=== PATIENT | male | born 1940 | race Caucasian/White ===

== ENCOUNTER 2016-06-24 14:19 | Inpatient (IN) | payer MEDICARE ==
[~2016-06-24] VITALS: Ht 182.9 cm; Wt 80.2 kg
[2016-06-24] MEDS ORDERED: SODIUM CHLORIDE FLUSH 10ML SYR IVF ONE (15:00)
[2016-06-24 15:52] LABS: BLOOD UREA NITROGEN 15 mg/dL (7-18)
[2016-06-24 16:03] LABS: ANISOCYTOSIS 1+; HYPOCHROMIA 1+; POLYCHROMASIA 1+
[2016-06-24 16:04] LABS: SPHEROCYTES 1+
[2016-06-24] MEDS ORDERED: INSU300I INJ (16:08)
[2016-06-24] MEDS ORDERED: FLUT50DI INH (16:08)
[2016-06-24] MEDS ORDERED: OMEP-110 PO (16:08)
[2016-06-24] MEDS ORDERED: METF10002 PO (16:08)
[2016-06-24] MEDS ORDERED: LEVO100T5 PO (16:08)
[2016-06-24] MEDS ORDERED: SIMV40TA3 PO (16:08)
[2016-06-24] MEDS ORDERED: PROC10TA PO (16:14)
[2016-06-24] MEDS ORDERED: IBUP-1222 PO (16:14)
[2016-06-24] MEDS ORDERED: UBID100C24 PO (16:14)
[2016-06-24] MEDS ORDERED: ONDA8TAB9 PO (16:14)
[2016-06-24] MEDS ORDERED: IRON15TA3 PO (16:14)
[2016-06-24] MEDS ORDERED: ASPI-496 PO (16:14)
[2016-06-24] MEDS ORDERED: DIPH25CA61 PO (16:14)
[2016-06-24] MEDS ORDERED: MILK500C PO (16:14)
[2016-06-24] MEDS ORDERED: SPIR25TA3 PO (16:14)
[2016-06-24] MEDS ORDERED: MV-M1TAB3 PO (16:14)
[2016-06-24] MEDS ORDERED: 5-FU IV (16:14)
[2016-06-24] MEDS ORDERED: OMEG-133 PO (16:14)
[2016-06-24] MEDS ORDERED: CINN500C2 PO (16:14)
[2016-06-24] MEDS ORDERED: [UNRECOGNIZED DRUG - CODE] IV (16:14)
[2016-06-24] MEDS ORDERED: PSEU120T60 PO (16:14)
[2016-06-24] MEDS ORDERED: SODIUM CHLORIDE 0.9% 1,000 ML IV ONE (18:17)
[2016-06-24] MEDS ORDERED: ONDANSETRON 2MG/ML, 2ML IVPush PRN (18:30)
[2016-06-24] MEDS ORDERED: HYDROmorphone 1 MG/ML, 1ML IVPush PRN (18:30)
[2016-06-24] MEDS ORDERED: SODIUM CHLORIDE FLUSH 10ML SYR IVF PRN (18:30)
[2016-06-24] MEDS ORDERED: DEXTROSE 4 GM TAB.CHEW PO PRN (19:00)
[2016-06-24] MEDS ORDERED: BISACODYL 10 MG SUPP PR PRN (19:00)
[2016-06-24] MEDS ORDERED: MORPHINE SULFATE 4 MG/ML, 1ML IVPush PRN (19:00)
[2016-06-24] MEDS ORDERED: DEXTROSE 50%, 50ML SYRINGE IVPush PRN (19:00)
[2016-06-24] MEDS ORDERED: ONDANSETRON 2MG/ML, 2ML IVP PRN (19:00)
[2016-06-24] MEDS ORDERED: PROMETHAZINE 25 MG/ML, 1ML IM PRN (19:00)
[2016-06-24] MEDS ORDERED: ACETAMINOPHEN 325 MG TABLET PO PRN (19:00)
[2016-06-24] MEDS ORDERED: POLYETHYLENE GLYCOL 17 GM PACKET PO PRN (19:00)
[2016-06-24] MEDS ORDERED: GLUCAGON 1 MG IM PRN (19:00)
[2016-06-24] MEDS ORDERED: LIDOCAINE GEL 2%, 5ML ONE (19:21)
[2016-06-24 20:25] VITALS: BP 149/87
[2016-06-24] MEDS: INSULIN ASPART 100 UNITS/ML, PEN SQ-INSULIN SCH (21:00)
[2016-06-24] MEDS: FLUTICASONE PROPIONATE 50 MCG INH SCH (21:30)
[2016-06-24] MEDS: SPIRONOLACTONE 25 MG TABLET PO SCH (22:13)
[2016-06-24] MEDS: SIMVASTATIN 40 MG TABLET PO SCH (22:13)
[2016-06-24] MEDS: SODIUM CHLORIDE FLUSH 10ML SYR IVF SCH (22:13)
[2016-06-24] MEDS: ENOXAPARIN 40 MG/0.4 ML SQ SCH (22:14)
[2016-06-24] MEDS: DIPHENHYDRAMINE 25 MG CAPSULE PO SCH (22:15)
[2016-06-24] MEDS: HYDROcodone/APAP 5/325 TABLET PO PRN (22:34)
[2016-06-25 04:05] VITALS: BP 123/73
[2016-06-25 04:55] LABS: ASPARTATE AMINO TRANSFERASE 23 U/L (15-37); BLOOD UREA NITROGEN 14 mg/dL (7-18)
[2016-06-25] MEDS: LEVOTHYROXINE 100 MCG TABLET PO SCH (06:41)
[2016-06-25] MEDS: INSULIN ASPART 100 UNITS/ML, PEN SQ-INSULIN SCH ×4 (07:00→20:56)
[2016-06-25 07:19] VITALS: BP 125/77
[2016-06-25] MEDS: ASPIRIN 81 MG TABLET EC PO SCH (07:34)
[2016-06-25] MEDS: SPIRONOLACTONE 25 MG TABLET PO SCH ×2 (07:34→19:46)
[2016-06-25] MEDS: SODIUM CHLORIDE FLUSH 10ML SYR IVF SCH ×2 (07:34→19:46)
[2016-06-25 13:47] VITALS: BP 122/73
[2016-06-25] MEDS: HYDROcodone/APAP 5/325 TABLET PO PRN ×2 (14:21→19:47)
[2016-06-25] MEDS: FLUTICASONE PROPIONATE 50 MCG INH SCH (19:32)
[2016-06-25] MEDS: ENOXAPARIN 40 MG/0.4 ML SQ SCH (19:46)
[2016-06-25] MEDS: SIMVASTATIN 40 MG TABLET PO SCH (19:46)
[2016-06-25] MEDS: DIPHENHYDRAMINE 25 MG CAPSULE PO SCH (19:47)
[2016-06-25 22:00] VITALS: BP 122/78
[2016-06-26 03:47] VITALS: BP 117/73
[2016-06-26 07:02] VITALS: BP 124/74
[2016-06-26] MEDS: LEVOTHYROXINE 100 MCG TABLET PO SCH (07:59)
[2016-06-26] MEDS: ASPIRIN 81 MG TABLET EC PO SCH (07:59)
[2016-06-26] MEDS: SPIRONOLACTONE 25 MG TABLET PO SCH ×2 (07:59→19:16)
[2016-06-26] MEDS: INSULIN ASPART 100 UNITS/ML, PEN SQ-INSULIN SCH ×4 (08:04→19:30)
[2016-06-26] MEDS: SODIUM CHLORIDE FLUSH 10ML SYR IVF SCH ×2 (08:09→19:16)
[2016-06-26 12:57] VITALS: BP 113/66
[2016-06-26] MEDS: FLUTICASONE PROPIONATE 50 MCG INH SCH (19:15)
[2016-06-26] MEDS: ENOXAPARIN 40 MG/0.4 ML SQ SCH (19:16)
[2016-06-26] MEDS: SIMVASTATIN 40 MG TABLET PO SCH (19:16)
[2016-06-26] MEDS: HYDROcodone/APAP 5/325 TABLET PO PRN (19:16)
[2016-06-26] MEDS: DIPHENHYDRAMINE 25 MG CAPSULE PO SCH (19:17)
[2016-06-26 19:22] VITALS: BP 127/81
[2016-06-27 04:18] VITALS: BP 117/76
[2016-06-27 07:50] VITALS: BP 112/71
[2016-06-27] MEDS: INSULIN ASPART 100 UNITS/ML, PEN SQ-INSULIN SCH ×4 (08:10→20:08)
[2016-06-27] MEDS: ASPIRIN 81 MG TABLET EC PO SCH (08:11)
[2016-06-27] MEDS: LEVOTHYROXINE 100 MCG TABLET PO SCH (08:11)
[2016-06-27] MEDS: SODIUM CHLORIDE FLUSH 10ML SYR IVF SCH ×2 (08:11→20:07)
[2016-06-27] MEDS: SPIRONOLACTONE 25 MG TABLET PO SCH ×2 (08:11→20:07)
[2016-06-27] MEDS ORDERED: Hydrocodone Bit/Acetaminophen PO (13:45)
[2016-06-27] MEDS ORDERED: POLY17PO5 PO (13:45)
[2016-06-27] MEDS ORDERED: Enoxaparin Sodium SQ (13:45)
[2016-06-27 13:52] VITALS: BP 108/65
[2016-06-27 19:12] VITALS: BP 122/72
[2016-06-27] MEDS: SIMVASTATIN 40 MG TABLET PO SCH (20:07)
[2016-06-27] MEDS: HYDROcodone/APAP 5/325 TABLET PO PRN ×2 (20:07→21:02)
[2016-06-27] MEDS: ENOXAPARIN 40 MG/0.4 ML SQ SCH (20:07)
[2016-06-27] MEDS: DIPHENHYDRAMINE 25 MG CAPSULE PO SCH (20:07)
[2016-06-27] MEDS: FLUTICASONE PROPIONATE 50 MCG INH SCH (20:08)
[2016-06-28 01:58] VITALS: BP 116/68
[2016-06-28 07:32] VITALS: BP 106/66
[2016-06-28] MEDS: SODIUM CHLORIDE FLUSH 10ML SYR IVF SCH (08:15)
[2016-06-28] MEDS: INSULIN ASPART 100 UNITS/ML, PEN SQ-INSULIN SCH ×2 (08:15→11:53)
[2016-06-28] MEDS: ASPIRIN 81 MG TABLET EC PO SCH (08:16)
[2016-06-28] MEDS: SPIRONOLACTONE 25 MG TABLET PO SCH (08:16)
[2016-06-28] MEDS: LEVOTHYROXINE 100 MCG TABLET PO SCH (08:17)
[2016-06-28 13:02] VITALS: BP 122/73
[2016-06-28] MEDS: HYDROcodone/APAP 5/325 TABLET PO PRN (15:11)
== END 2016-06-28 15:55 | DRG 535 ==
LOC: ED 16:39 → EDIP 18:17 → SUATTDRO 18:35 → 3NW 20:21
PROVIDERS: ADMIT Internal Medicine; ATTEND Internal Medicine
DX: S32.592A Other specified fracture of left pubis, initial encounter for closed fracture (principal); E43 Unspecified severe protein-calorie malnutrition; S32.415A Nondisplaced fracture of anterior wall of left acetabulum, initial encounter for closed fracture; J98.11 Atelectasis; R18.8 Other ascites; D63.8 Anemia in other chronic diseases classified elsewhere; E03.9 Hypothyroidism, unspecified; K59.00 Constipation, unspecified; R26.2 Difficulty in walking, not elsewhere classified; W18.39XA Other fall on same level, initial encounter; E11.9 Type 2 diabetes mellitus without complications; E78.5 Hyperlipidemia, unspecified; Z80.42 Family history of malignant neoplasm of prostate; Z80.8 Family history of malignant neoplasm of other organs or systems; Z83.3 Family history of diabetes mellitus; Z85.46 Personal history of malignant neoplasm of prostate; Z85.828 Personal history of other malignant neoplasm of skin; Z90.81 Acquired absence of spleen; Z68.24 Body mass index [BMI] 24.0-24.9, adult; Y93.89 Activity, other specified; Y92.89 Other specified places as the place of occurrence of the external cause; Y99.8 Other external cause status
CPT/HCPCS: 36415; 71010; 80048; 80053; 81003; 82040; 82962; 85025; 85610; 85730; J1650; J1815; J7030; Q0163

== ENCOUNTER → 2016-08-11 | Outpatient (CLI) | payer MEDICARE ==
[~2016-08-11] MED LIST: 5-FU IV; ASPI-496 PO; CINN500C2 PO; DIPH25CA61 PO; Enoxaparin Sodium SQ; FLUT50DI INH; Hydrocodone Bit/Acetaminophen PO; IBUP-1222 PO; INSU300I INJ; IRON15TA3 PO; LEVO100T5 PO; LIDOCAINE 2%, 20ML ONE; METF10002 PO; MILK500C PO; MV-M1TAB3 PO; OMEG-133 PO; OMEP-110 PO; ONDA8TAB9 PO; POLY17PO5 PO; PROC10TA PO; PSEU120T60 PO; SIMV40TA3 PO; SODIUM BICARBONATE 4.2%, 5ML ONE; SPIR25TA3 PO; UBID100C24 PO; [UNRECOGNIZED DRUG - CODE] IV
== END | disposition home or self-care (01) ==
LOC: RAD 07:26
PROVIDERS: ATTEND Specialist
DX: C78.6 Secondary malignant neoplasm of retroperitoneum and peritoneum (principal); R14.0 Abdominal distension (gaseous)
CPT/HCPCS: 49083; J3490

== ENCOUNTER 2016-08-17 19:46 | Emergency (ER) | payer MEDICARE ==
[~2016-08-17] VITALS: Ht 182.9 cm; Wt 78.5 kg
[~2016-08-17 19:46] MED LIST changes: -LIDOCAINE 2%, 20ML ONE; -SODIUM BICARBONATE 4.2%, 5ML ONE
[2016-08-17 19:51] VITALS: BP 148/77
== END 2016-08-17 21:22 | disposition home or self-care (01) ==
LOC: ED 21:15
DX: Z45.2 Encounter for adjustment and management of vascular access device (principal); C61 Malignant neoplasm of prostate; E11.9 Type 2 diabetes mellitus without complications; Z90.81 Acquired absence of spleen
CPT/HCPCS: 99283

== ENCOUNTER → 2016-10-14 | Outpatient (CLI) | payer MEDICARE ==
[~2016-10-14] MED LIST changes: +OMNIPAQUE 350 MG/ML, 100ML BOTTLE ONE
== END | disposition home or self-care (01) ==
LOC: CFH 13:30
PROVIDERS: ATTEND Specialist
DX: C78.6 Secondary malignant neoplasm of retroperitoneum and peritoneum (principal); J90 Pleural effusion, not elsewhere classified; K44.9 Diaphragmatic hernia without obstruction or gangrene; I25.10 Atherosclerotic heart disease of native coronary artery without angina pectoris; I70.0 Atherosclerosis of aorta; J98.11 Atelectasis; S32.9XXD Fracture of unspecified parts of lumbosacral spine and pelvis, subsequent encounter for fracture with routine healing; X58.XXXD Exposure to other specified factors, subsequent encounter
CPT/HCPCS: 71260; 74177; Q9967

== ENCOUNTER 2016-12-05 10:55 | Inpatient (IN) | payer MEDICARE ==
[~2016-12-05] VITALS: Ht 182.9 cm; Wt 73.5 kg
[~2016-12-05 10:55] MED LIST changes: -OMNIPAQUE 350 MG/ML, 100ML BOTTLE ONE
[2016-12-05] MEDS ORDERED: ASPI-496 PO (11:29)
[2016-12-05] MEDS ORDERED: MILK500C PO (11:29)
[2016-12-05] MEDS ORDERED: LEVO75TA5 PO (11:29)
[2016-12-05] MEDS ORDERED: ONDA8TAB16 SL (11:29)
[2016-12-05] MEDS ORDERED: UBID50TA3 PO (11:29)
[2016-12-05] MEDS ORDERED: METF10002 PO (11:29)
[2016-12-05] MEDS ORDERED: OMEP40CA6 PO (11:29)
[2016-12-05] MEDS ORDERED: SIMV40TA3 PO (11:29)
[2016-12-05] MEDS ORDERED: MULT-257 PO (11:29)
[2016-12-05] MEDS ORDERED: ASCO10004 PO (11:29)
[2016-12-05] MEDS ORDERED: INSU300I SQ (11:29)
[2016-12-05] MEDS ORDERED: FLUT1DIS3 INH (11:29)
[2016-12-05] MEDS ORDERED: CINN500C2 PO (11:29)
[2016-12-05] MEDS ORDERED: OMEG1CAP34 PO (11:29)
[2016-12-05] MEDS ORDERED: SODIUM CHLORIDE FLUSH 10ML SYR IVF ONE (11:30)
[2016-12-05] MEDS ORDERED: SODIUM CHLORIDE 0.9% 1,000ML IVBOLUS ONE (11:30)
[2016-12-05 11:47] LABS: ASPARTATE AMINO TRANSFERASE 16 U/L (15-37); BLOOD UREA NITROGEN 28 mg/dL (7-18)
[2016-12-05 12:00] LABS: HEMATOCRIT 39.2 % (39.2-51.8); HEMOGLOBIN 12.4 g/dL (13.7-18.0)
[2016-12-05 12:13] LABS: DIFF TOTAL CELLS COUNTED 100 CELL DIFF
[2016-12-05 12:20] LABS: WHITE BLOOD COUNT 1.1 x10^3/uL (3.4-10)
[2016-12-05 12:21] LABS: ANISOCYTOSIS 1+; HYPOCHROMIA 1+; POLYCHROMASIA 1+; VERIFY COUNTS? YES
[2016-12-05] MEDS ORDERED: OMNIPAQUE 350 MG/ML, 100ML BOTTLE ONE (13:14)
[2016-12-05] MEDS ORDERED: METRONIDAZOLE PMX 500MG/100ML 100 ML IV ONE (13:30)
[2016-12-05] MEDS ORDERED: PIPERACILLIN/TAZO/PMX 3.375GM 50 ML IV ONE (13:30)
[2016-12-05] MEDS ORDERED: METRONIDAZOLE PMX 500MG/100ML 100 ML ONE (13:47)
[2016-12-05] MEDS ORDERED: PIPERACILLIN/TAZO/PMX 3.375GM 50 ML ONE (13:47)
[2016-12-05] MEDS ORDERED: SODIUM CHLORIDE 0.9% 1,000 ML IV ONE (15:33)
[2016-12-05] MEDS ORDERED: SODIUM CHLORIDE FLUSH 10ML SYR IVF PRN (16:00)
[2016-12-05] MEDS ORDERED: ONDANSETRON 2MG/ML, 2ML IVPush PRN (16:30)
[2016-12-05] MEDS ORDERED: PROMETHAZINE 25 MG/ML, 1ML IM PRN (16:30)
[2016-12-05] MEDS ORDERED: morphine SULFATE 10 MG/ML, 1ML IVPush PRN (16:30)
[2016-12-05] MEDS ORDERED: METOCLOPRAMIDE 5 MG/ML, 2ML IVPush PRN (16:30)
[2016-12-05] MEDS ORDERED: MAGNESIUM SULFATE PMX 2GM/50ML 50 ML IV ONE (17:00)
[2016-12-05] MEDS ORDERED: D5%-0.45NACL+KCL 20MEQ 1,000 ML IV SCH (17:00)
[2016-12-05] MEDS: METRONIDAZOLE PMX 500MG/100ML 100 ML IV SCH ×2 (18:00→22:40)
[2016-12-05] MEDS: D5%-0.45NACL+KCL 20MEQ 1,000 ML IV SCH ×2 (19:00→21:51)
[2016-12-05 20:11] VITALS: BP 125/79
[2016-12-05] MEDS: PIPERACILLIN/TAZO/PMX 3.375GM 50 ML IV SCH (21:51)
[2016-12-06 04:00] VITALS: BP 122/75
[2016-12-06] MEDS: PIPERACILLIN/TAZO/PMX 3.375GM 50 ML IV SCH ×4 (04:08→21:58)
[2016-12-06 04:53] LABS: BLOOD UREA NITROGEN 30 mg/dL (7-18)
[2016-12-06 04:56] LABS: ASPARTATE AMINO TRANSFERASE 15 U/L (15-37)
[2016-12-06 04:59] LABS: HEMATOCRIT 38.5 % (39.2-51.8); HEMOGLOBIN 12.1 g/dL (13.7-18.0)
[2016-12-06 05:00] LABS: WHITE BLOOD COUNT 1.5 x10^3/uL (3.4-10)
[2016-12-06 06:00] LABS: DIFF TOTAL CELLS COUNTED 50 CELL DIFFERENTIAL
[2016-12-06 06:01] LABS: ANISOCYTOSIS 1+; HYPOCHROMIA 1+; POLYCHROMASIA 1+; VERIFY COUNTS? YES
[2016-12-06] MEDS: METRONIDAZOLE PMX 500MG/100ML 100 ML IV SCH ×3 (06:07→19:10)
[2016-12-06 07:16] VITALS: BP 122/77
[2016-12-06] MEDS: D5%-0.45NACL+KCL 20MEQ 1,000 ML IV SCH ×2 (09:04→21:58)
[2016-12-06] MEDS: LEVOTHYROXINE 100 MCG INJ IVPush SCH (09:10)
[2016-12-06 13:33] VITALS: BP 117/76
[2016-12-06 19:45] VITALS: BP 117/72
[2016-12-07 01:49] VITALS: BP 115/73
[2016-12-07] MEDS: METRONIDAZOLE PMX 500MG/100ML 100 ML IV SCH ×2 (03:00→10:34)
[2016-12-07] MEDS: PIPERACILLIN/TAZO/PMX 3.375GM 50 ML IV SCH ×2 (04:19→10:00)
[2016-12-07 08:05] VITALS: BP 117/78
[2016-12-07] MEDS: D5%-0.45NACL+KCL 20MEQ 1,000 ML IV SCH (08:59)
[2016-12-07] MEDS: LEVOTHYROXINE 100 MCG INJ IVPush SCH (08:59)
[2016-12-07 12:15] VITALS: BP 110/73
== END 2016-12-07 14:40 | disposition hospice, inpatient (51) | DRG 871 ==
LOC: ED 11:52 → EDIP 15:33 → 3NW 16:50
PROVIDERS: ADMIT Internal Medicine; ATTEND Internal Medicine
DX: A41.9 Sepsis, unspecified organism (principal); E43 Unspecified severe protein-calorie malnutrition; J96.01 Acute respiratory failure with hypoxia; K63.1 Perforation of intestine (nontraumatic); J18.9 Pneumonia, unspecified organism; R18.8 Other ascites; N13.30 Unspecified hydronephrosis; R64 Cachexia; C61 Malignant neoplasm of prostate; C76.2 Malignant neoplasm of abdomen; J98.11 Atelectasis; E11.9 Type 2 diabetes mellitus without complications; D70.9 Neutropenia, unspecified; Z68.22 Body mass index [BMI] 22.0-22.9, adult; D63.8 Anemia in other chronic diseases classified elsewhere; E03.9 Hypothyroidism, unspecified; E78.00 Pure hypercholesterolemia, unspecified; E78.5 Hyperlipidemia, unspecified; G89.29 Other chronic pain; I10 Essential (primary) hypertension; K44.9 Diaphragmatic hernia without obstruction or gangrene; Z66 Do not resuscitate; Z80.42 Family history of malignant neoplasm of prostate; Z83.3 Family history of diabetes mellitus; Z85.46 Personal history of malignant neoplasm of prostate; Z85.828 Personal history of other malignant neoplasm of skin; Z90.81 Acquired absence of spleen; Z74.01 Bed confinement status
CPT/HCPCS: 36415; 71275; 74022; 74177; 80053; 83690; 83735; 84100; 85025; 85610; 85730; 93005; 96361; 96365; 96367; J2543; Q9967; J3475; J3480; J7030